=== PATIENT | female | born 1970 | race Caucasian/White ===

== ENCOUNTER 2023-10-18 16:37 | Emergency (ER) | payer MEDICAID, OTHER ==
[~2023-10-18] VITALS: Ht 162.6 cm; Wt 103.0 kg
[~2023-10-18 16:37] MED LIST: PEPTO BISMOL
[2023-10-18 16:56] VITALS: O2SAT 98
[2023-10-18] MEDS: FAMOTIDINE 20MG TABLET PO ONE (17:32)
[2023-10-18] MEDS: IBUPROFEN 600MG TABLET PO STA (17:32)
[2023-10-18 17:35] LABS: CLARITY URINE CLEAR (CLEAR); COLOR URINE YELLOW (YELLOW); GLUCOSE URINE NEGATIVE (NEGATIVE); KETONES URINE NEGATIVE (NEGATIVE); LEUKOCYTE ESTERASE URINE NEGATIVE (NEGATIVE); NITRITE URINE NEGATIVE (NEGATIVE); OCCULT BLOOD URINE NEGATIVE (NEGATIVE); PH URINE 8.5 (4.5-8.0); PROTEIN URINE NEGATIVE (NEGATIVE); SPECIFIC GRAVITY URINE 1.023 (1.005-1.030)
[2023-10-18 18:32] LABS: BASOPHILS % 0.2 % (0.0-2.0); EOSINOPHILS % 0.8 % (0.0-5.0); HEMATOCRIT. 37.4 % (36.0-48.0); HEMOGLOBIN. 12.7 g/dL (12.0-16.0); MEAN CORPUSCULAR HEMOGLOBIN 31.1 pg (28.0-32.0); MEAN CORPUSCULAR HGB CONC 34.1 g/dL (31.0-37.0); MEAN CORPUSCULAR VOLUME 91.2 fL (81.0-99.0); MEAN PLATELET VOLUME 7.7 fl (7.4-10.4); PLATELET 334 x1000/uL (130-400); RED CELL DISTRIBUTION WIDTH 13.7 % (11.6-14.6); WHITE BLOOD COUNT 9.7 x1000/uL (4.5-11.0)
[2023-10-18 18:46] LABS: CHLORIDE 102 mEq/L (98-107); POTASSIUM 3.9 mEq/L (3.5-5.1); SODIUM 135 mEq/L (136-145)
[2023-10-18 18:48] LABS: CALCIUM 9.5 mg/dL (8.7-10.4); CARBON DIOXIDE 28 mEq/L (21-32)
[2023-10-18 18:52] LABS: HCG SCREEN NEGATIVE
[2023-10-18 18:53] LABS: CREATININE 0.6 mg/dL (0.6-1.0); GLUCOSE 166 mg/dL (70-105); UREA NITROGEN BLOOD 6 mg/dL (9-23)
[2023-10-18] MEDS: CEFTRIAXONE 1GM/50ML 50 ML IV ONE (18:53)
[2023-10-18 18:55] LABS: ALANINE AMINOTRANSFERASE 39 IU/L (10-49); ALBUMIN 4.5 g/dL (3.2-4.8); ASPARTATE AMINOTRANSFERASE 20 IU/L (<34); BILIRUBIN DIRECT 0.1 mg/dL (<=3.0); BILIRUBIN TOTAL 0.4 mg/dL (0.1-1.0)
[2023-10-18 18:56] LABS: PROTEIN TOTAL 7.9 g/dL (6.0-8.3)
[2023-10-18] MEDS: METRONIDAZOLE 500 MG PREMIX 100 ML IV ONE (19:17)
[2023-10-18] MEDS ORDERED: AMOX1TAB16 MT (19:20)
[2023-10-18] MEDS ORDERED: HYDR-4001 MT (19:20)
[2023-10-18] MEDS ORDERED: IBUP-2028 MT (19:20)
[2023-10-18 20:34] VITALS: BP 130/70; PULSE 80; RESP 15; TEMP 36.89184; O2SAT 99
== END 2023-10-18 20:34 | disposition home or self-care (01) ==
LOC: ER 16:37
DX: K57.92 Diverticulitis of intestine, part unspecified, without perforation or abscess without bleeding (principal); I49.9 Cardiac arrhythmia, unspecified; E11.9 Type 2 diabetes mellitus without complications; Z90.49 Acquired absence of other specified parts of digestive tract
CPT/HCPCS: 80076; 80048; 81003; 84703; 83690; 85025; 86850; 86900; 86901; 36415; 74176; 93005; 96367; 96365; 99285; J0696; J3490; Z7610 ×2

== ENCOUNTER 2024-10-25 21:32 | Emergency (ER) | payer MEDICAID ==
[~2024-10-25] VITALS: Ht 157.5 cm; Wt 102.0 kg
[~2024-10-25 21:32] MED LIST changes: +AMOX1TAB16 MT; +HYDR-4001 MT; +IBUP-2028 MT
[2024-10-25 22:20] VITALS: O2SAT 100
[2024-10-25] MEDS: CYCLOBENZAPRINE 10MG TABLET PO ONE (23:49)
[2024-10-25] MEDS: KETOROLAC 30MG/ML VIAL IM ONE (23:50)
[2024-10-25] MEDS ORDERED: NAPR-1176 MT (23:58)
[2024-10-25] MEDS ORDERED: CYCL10TA21 MT (23:58)
[2024-10-26 00:25] VITALS: BP 120/65; PULSE 56; RESP 18; TEMP 37.1; O2SAT 100
== END 2024-10-26 00:50 | disposition home or self-care (01) ==
LOC: ER 21:32
DX: M79.662 Pain in left lower leg (principal); E11.9 Type 2 diabetes mellitus without complications; Z90.49 Acquired absence of other specified parts of digestive tract
CPT/HCPCS: 99285; 93971; 81025; 96372; J1885

== ENCOUNTER 2024-11-28 00:44 | Emergency (ER) | payer MEDICAID ==
[~2024-11-28] VITALS: Ht 165.1 cm; Wt 102.0 kg
[~2024-11-28 00:44] MED LIST changes: +CYCL10TA21 MT; +NAPR-1176 MT
[2024-11-28 01:02] VITALS: O2SAT 99
[2024-11-28 04:36] LABS: CLARITY URINE CLOUDY (CLEAR); COLOR URINE YELLOW (YELLOW); GLUCOSE URINE NEGATIVE (NEGATIVE); KETONES URINE NEGATIVE (NEGATIVE); LEUKOCYTE ESTERASE URINE 3+ (NEGATIVE); NITRITE URINE NEGATIVE (NEGATIVE); OCCULT BLOOD URINE 2+ (NEGATIVE); PH URINE 5.5 (4.5-8.0); PROTEIN URINE 1+ (NEGATIVE); SPECIFIC GRAVITY URINE 1.011 (1.005-1.030); UROBILINOGEN URINE 0.2 E.U./dL (0.2-1.0)
[2024-11-28 05:09] LABS: SQUAMOUS EPITHELIAL CELL URINE FEW /lpf (RARE/1+)
[2024-11-28 05:10] LABS: BACTERIA URINE TRACE; WBC URINE 50-100 /hpf (0-2)
[2024-11-28] MEDS ORDERED: NITR100C MT (05:21)
[2024-11-28 05:54] VITALS: BP 112/67; PULSE 70; RESP 18; TEMP 36.9; O2SAT 99
== END 2024-11-28 05:54 | disposition home or self-care (01) ==
LOC: ER 00:44
DX: N30.91 Cystitis, unspecified with hematuria (principal); E11.9 Type 2 diabetes mellitus without complications; Z79.899 Other long term (current) drug therapy
CPT/HCPCS: 81003; 87077; 87186; 99283